=== PATIENT | female | born 1995 | race African-American/Black ===

== ENCOUNTER 2017-06-26 20:34 | Emergency (ER) | payer MEDICAID, OTHER ==
[~2017-06-26] VITALS: Ht 170.2 cm; Wt 100.0 kg
[2017-06-26 23:28] LABS: CLARITY URINE CLOUDY (CLEAR); COLOR URINE YELLOW (YELLOW); GLUCOSE URINE NEGATIVE (NEGATIVE); KETONES URINE TRACE (NEGATIVE); LEUKOCYTE ESTERASE URINE 1+ (NEGATIVE); NITRITE URINE NEGATIVE (NEGATIVE); OCCULT BLOOD URINE NEGATIVE (NEGATIVE); PH URINE 6.5 (4.5-8.0); PROTEIN URINE NEGATIVE (NEGATIVE); SPECIFIC GRAVITY URINE 1.028 (1.005-1.030)
[2017-06-26] MEDS ORDERED: SODIUM CHLORIDE 0.9% 1,000 ML IV ONE (23:51)
[2017-06-26] MEDS ORDERED: ONDANSETRON HCL 4MG/2ML VIAL IV STA (23:51)
[2017-06-26] MEDS ORDERED: FAMOTIDINE 20MG/2ML VIAL IV STA (23:51)
[2017-06-27 00:23] LABS: EOSINOPHILS % 5.4 % (0.0-5.0); HEMATOCRIT. 36.3 % (36.0-48.0); HEMOGLOBIN. 11.8 g/dL (12.0-16.0); LYMPHOCYTES % 31.1 % (20.0-50.0); MEAN CORPUSCULAR HEMOGLOBIN 28.1 pg (28.0-32.0); MEAN CORPUSCULAR VOLUME 86.5 fL (81.0-99.0); MEAN PLATELET VOLUME 9.7 fl (7.4-10.4); MONOCYTES % 6.7 % (2.0-8.0); NEUTROPHILS % 55.8 % (40.0-76.0); PLATELET 200 x1000/uL (130-400); RED BLOOD CELL COUNT 4.19 mill/uL (4.2-5.4); RED CELL DISTRIBUTION WIDTH 15.5 % (11.6-14.6)
[2017-06-27 00:33] LABS: CHLORIDE 107 mEq/L (98-107)
[2017-06-27 00:37] LABS: PROTHROMBIN TIME 10.8 sec (9.4-11.6)
[2017-06-27 00:42] LABS: CARBON DIOXIDE 30 mEq/L (21-32)
[2017-06-27 02:36] VITALS: BP 116/70
== END 2017-06-27 03:12 | disposition home or self-care (01) ==
LOC: ER 21:36
DX: N39.0 Urinary tract infection, site not specified (principal); R19.7 Diarrhea, unspecified; R11.2 Nausea with vomiting, unspecified; F17.200 Nicotine dependence, unspecified, uncomplicated; F12.10 Cannabis abuse, uncomplicated; Z90.49 Acquired absence of other specified parts of digestive tract
CPT/HCPCS: 36415; 80053; 81001; 81025; 83690; 85025; 85610; 96361; 96374; 96375; 99284; J2405; J3490; J7030; Z7610

== ENCOUNTER 2017-10-09 12:01 | Emergency (ER) | payer OTHER ==
[~2017-10-09] VITALS: Ht 162.6 cm; Wt 84.0 kg
[2017-10-09 14:14] LABS: CLARITY URINE CLOUDY (CLEAR); COLOR URINE DARK YELLOW (YELLOW); KETONES URINE TRACE (NEGATIVE); LEUKOCYTE ESTERASE URINE 1+ (NEGATIVE); NITRITE URINE NEGATIVE (NEGATIVE); OCCULT BLOOD URINE 3+ (NEGATIVE); PH URINE 5.5 (4.5-8.0); PROTEIN URINE 2+ (NEGATIVE); SPECIFIC GRAVITY URINE 1.031 (1.005-1.030)
[2017-10-09 14:38] LABS: *AMPHETAMINES SCREEN URINE NEGATIVE (NEGATIVE); *BARBITURATES SCREEN URINE NEGATIVE (NEGATIVE); *BENZODIAZEPINES SCREEN URINE NEGATIVE (NEGATIVE); *COCAINE SCREEN URINE NEGATIVE (NEGATIVE); METHADONE URINE SCREEN NEGATIVE (NEGATIVE); OPIATES URINE SCREEN NEGATIVE (NEGATIVE)
[2017-10-09 14:39] LABS: PHENCYCLIDINE URINE SCREEN NEGATIVE (NEGATIVE)
[2017-10-09 14:40] LABS: BASOPHILS % 0.9 % (0.0-2.0); HEMATOCRIT. 36.7 % (36.0-48.0); HEMOGLOBIN. 12.2 g/dL (12.0-16.0); LYMPHOCYTES % 27.6 % (20.0-50.0); MEAN CORPUSCULAR HEMOGLOBIN 28.6 pg (28.0-32.0); MEAN CORPUSCULAR VOLUME 85.7 fL (81.0-99.0); MEAN PLATELET VOLUME 9.8 fl (7.4-10.4); NEUTROPHILS % 61.5 % (40.0-76.0); PLATELET 217 x1000/uL (130-400); RED BLOOD CELL COUNT 4.28 mill/uL (4.2-5.4); RED CELL DISTRIBUTION WIDTH 16.8 % (11.6-14.6)
[2017-10-09 14:48] LABS: CANNABINOID URINE SCREEN PRESUMTIVE POSITIVE (NEGATIVE)
[2017-10-09 14:49] LABS: CHLORIDE 108 mEq/L (98-107)
[2017-10-09 14:53] LABS: B-HCG QUANTITATIVE < 1 mIU/mL (<3)
[2017-10-09 20:39] VITALS: BP 121/69
== END 2017-10-09 22:40 | disposition home or self-care (01) ==
LOC: ER 12:49
DX: N39.0 Urinary tract infection, site not specified (principal); N17.0 Acute kidney failure with tubular necrosis; F12.10 Cannabis abuse, uncomplicated; E87.8 Other disorders of electrolyte and fluid balance, not elsewhere classified; E86.0 Dehydration; R82.4 Acetonuria; R80.9 Proteinuria, unspecified; R73.9 Hyperglycemia, unspecified; R31.9 Hematuria, unspecified; F17.200 Nicotine dependence, unspecified, uncomplicated; G62.9 Polyneuropathy, unspecified; Z90.49 Acquired absence of other specified parts of digestive tract
CPT/HCPCS: 36415; 76830; 76856; 80053; 80305; 81003; 81025; 83036; 84702; 85025; 86850; 86900; 93005; 99285

== ENCOUNTER 2018-08-21 11:47 | Emergency (ER) | payer OTHER ==
[~2018-08-21] VITALS: Ht 172.7 cm; Wt 84.0 kg
[2018-08-21] MEDS ORDERED: IBUPROFEN 800MG TABLET PO ONE (13:00)
[2018-08-21 13:35] VITALS: BP 118/62
== END 2018-08-21 14:05 | disposition home or self-care (01) ==
LOC: ER 11:47
DX: J03.90 Acute tonsillitis, unspecified (principal); H60.90 Unspecified otitis externa, unspecified ear; E66.9 Obesity, unspecified; Z90.49 Acquired absence of other specified parts of digestive tract
CPT/HCPCS: 87430; 99283

== ENCOUNTER 2019-11-18 09:10 | Emergency (ER) | payer MEDICAID, OTHER | END 2019-11-18 10:40 | disposition left against medical advice (07) | LOC: ER 09:10 | DX: Z53.21 Procedure and treatment not carried out due to patient leaving prior to being seen by health care provider (principal) ==

== ENCOUNTER 2019-12-28 22:17 | Emergency (ER) | payer MEDICAID ==
[~2019-12-28] VITALS: Ht 167.6 cm; Wt 82.3 kg
[2019-12-28 22:35] VITALS: BP 117/65
== END 2019-12-28 22:59 | disposition left against medical advice (07) ==
LOC: ER 22:17
DX: Z53.21 Procedure and treatment not carried out due to patient leaving prior to being seen by health care provider (principal)

== ENCOUNTER 2020-02-03 11:44 | Emergency (ER) | payer MEDICAID ==
[~2020-02-03] VITALS: Ht 167.6 cm; Wt 73.0 kg
[2020-02-03 12:37] LABS: CLARITY URINE CLEAR (CLEAR); COLOR URINE YELLOW (YELLOW); KETONES URINE NEGATIVE (NEGATIVE); LEUKOCYTE ESTERASE URINE NEGATIVE (NEGATIVE); NITRITE URINE NEGATIVE (NEGATIVE); OCCULT BLOOD URINE NEGATIVE (NEGATIVE); PH URINE 8.5 (4.5-8.0); PROTEIN URINE NEGATIVE (NEGATIVE); SPECIFIC GRAVITY URINE 1.024 (1.005-1.030)
[2020-02-03 12:49] VITALS: BP 106/61
== END 2020-02-03 12:51 | disposition home or self-care (01) ==
LOC: ER 11:44
DX: K64.9 Unspecified hemorrhoids (principal); Z90.49 Acquired absence of other specified parts of digestive tract
CPT/HCPCS: 81003; 81025; 99282

== ENCOUNTER 2020-02-28 07:38 | Emergency (ER) | payer MEDICAID ==
[~2020-02-28] VITALS: Ht 170.2 cm; Wt 82.0 kg
[2020-02-28 07:44] VITALS: BP 100/64
== END 2020-02-28 09:07 | disposition left against medical advice (07) ==
LOC: ER 07:38
DX: K64.9 Unspecified hemorrhoids (principal); Z53.21 Procedure and treatment not carried out due to patient leaving prior to being seen by health care provider

== ENCOUNTER 2020-03-26 02:33 | Emergency (ER) | payer MEDICAID ==
[~2020-03-26] VITALS: Ht 175.3 cm; Wt 68.0 kg
[2020-03-26 02:38] VITALS: BP 152/87
== END 2020-03-26 03:18 | disposition left against medical advice (07) ==
LOC: ER 02:33
DX: Z53.21 Procedure and treatment not carried out due to patient leaving prior to being seen by health care provider (principal)

== ENCOUNTER 2025-05-07 11:06 | Emergency (ER) | payer MEDICAID ==
[~2025-05-07] VITALS: Ht 170.2 cm; Wt 93.0 kg
[2025-05-07 11:13] VITALS: O2SAT 100
[2025-05-07 12:37] LABS: CLARITY URINE CLEAR (CLEAR); COLOR URINE YELLOW (YELLOW); GLUCOSE URINE NEGATIVE (NEGATIVE); KETONES URINE NEGATIVE (NEGATIVE); LEUKOCYTE ESTERASE URINE 1+ (NEGATIVE); NITRITE URINE NEGATIVE (NEGATIVE); OCCULT BLOOD URINE NEGATIVE (NEGATIVE); PH URINE 6.5 (4.5-8.0); PROTEIN URINE NEGATIVE (NEGATIVE); SPECIFIC GRAVITY URINE 1.023 (1.005-1.030); UROBILINOGEN URINE 1.0 E.U./dL (0.2-1.0)
[2025-05-07 12:54] LABS: SQUAMOUS EPITHELIAL CELL URINE 1+ /lpf (RARE/1+)
[2025-05-07 12:55] LABS: BACTERIA URINE TRACE
[2025-05-07 12:56] LABS: RBC URINE NONE SEEN /hpf (0-2)
[2025-05-07 12:57] LABS: TRICHOMONAS URINE FEW
[2025-05-07] MEDS ORDERED: METR-167 MT (13:34)
[2025-05-07 13:42] VITALS: BP 115/78; PULSE 82; RESP 14; TEMP 36.7; O2SAT 100
[2025-05-11 08:08] LABS: CHLAMYDIA TRACHOMATIS NAA Negative (Negative); NEISSERIA GONORRHOEAE NAA Negative (Negative)
== END 2025-05-07 13:43 | disposition home or self-care (01) ==
LOC: ER 11:06
DX: Z11.3 Encounter for screening for infections with a predominantly sexual mode of transmission (principal); A59.9 Trichomoniasis, unspecified; I10 Essential (primary) hypertension; F12.90 Cannabis use, unspecified, uncomplicated; Z98.890 Other specified postprocedural states
CPT/HCPCS: 81003; 81025; 87491; 87591; 99283